=== PATIENT | female | born 1995 | race Two or more races ===

== ENCOUNTER 2024-04-21 18:38 | Emergency (ER) | payer MEDICAID, SELFPAY ==
[2024-04-21 18:40] VITALS: BMI 25.4
[2024-04-21 18:57] VITALS: BP 112/61; PULSE 107; RESP 16; TEMP 36.9; O2SAT 99
--- NOTE | 2024-04-21 19:04 | EDNOTE_ITS ---
ED OB Contraction Preg RMI/HPI General Chief complaint: Vaginal Bleeding Stated complaint: VAG BLEEDING AND IS 5WK PREG Time Seen by Provider: 04/21/24 19:02 Source: patient and family Arrival date/time: 04/21/24 18:38 28-year-old female with no past medical history presents emergency department complaining of vaginal bleeding that started today. Patient reports bleeding is very minimal but does not have abdominal cramping. Patient reports is approximately 5 weeks and is 1. Patient denies any fever, chills, flank pain, gross hematuria, diarrhea, or any other associated symptom. Mode of arrival: ambulatory Limitations: no limitations Related Data Allergies Allergy/AdvReac Type Severity Reaction Status Date / Time No Known Allergies Allergy Verified 04/21/24 18:42 Review of Systems Review of Systems Systems Reviewed: All systems reviewed, normal except as documented Constitutional Constitutional: Reports system reviewed and no additional complaints, except as documented, Denies body ache(s), Denies chills and Denies fever(s) Eyes Eyes: Reports system reviewed and no additional complaints, except as documented and Denies change in vision ENT Ears, Nose, Mouth, and Throat: Reports system reviewed and no additional complaints, except as documented, Denies disequilibrium, Denies dizziness, Denies sore throat and Denies vertigo Cardiovascular Cardiovascular: Reports system reviewed and no additional complaints, except as documented, Denies chest pain and Denies dyspnea Respiratory Respiratory: Reports system reviewed and no additional complaints, except as documented, Denies chest congestion, Denies cough and Denies dyspnea Gastrointestinal Gastrointestinal: Reports system reviewed and no additional complaints, except as documented, Denies abdominal pain, Denies nausea and Denies vomiting Genitourinary Genitourinary: Reports abnormal vaginal bleeding Musculoskeletal Musculoskeletal: Reports system reviewed and no additional complaints, except as documented, Denies abnormal gait and Denies arthralgias Integumentary/Breasts Skin/Breast: Reports system reviewed and no additional complaints, except as documented, Denies erythema, Denies rash and Denies wounds Neurologic Neurologic: Reports system reviewed and no additional complaints, except as documented, Denies abnormal gait, Denies disequilibrium, Denies dizziness and Denies vertigo Past Medical History Social History SMOKING STATUS: Never smoker ED Exam General Limitations: Present no limitations General appearance: Present alert and in no apparent distress Head Head exam: Present atraumatic Eye Eye exam: Present normal appearance, PERRL and EOMI ENT ENT exam: Present normal exam, normal oropharynx and mucous membranes moist Neck Neck exam: Present normal inspection, full ROM and trachea midline Chest Chest inspection: Present normal inspection and symmetric chest wall rise Respiratory Respiratory exam: Present normal lung sounds bilaterally Cardiovascular Cardiovascular exam: Present regular rate, normal rhythm and normal heart sounds Abdominal Exam Abdominal exam: Present soft and normal bowel sounds Extremities Exam Extremities exam: Present normal inspection and full ROM Back Exam Back exam: Present normal inspection and full ROM Neurological Exam Neurological exam: Present alert, oriented X3 and CN II-XII intact Psychiatric Psychiatric exam: Present normal affect and normal mood Skin Skin exam: Present warm, dry, intact and normal color Course Quality Measures none Orders Category Date Time Status US OB <= 14 weeks fetus Stat Exams 04/21/24 20:15 Completed ABO/RH Type Stat Lab 04/21/24 19:29 Completed Beta HCG,Quantitative Stat Lab 04/21/24 19:29 Completed CBC Stat Lab 04/21/24 19:29 Completed CMP [Comprehensive Metabolic Panel] Stat Lab 04/21/24 19:29 Completed Path Review Blood Smear Stat Lab 04/21/24 19:29 Completed Urinalysis, C/S if Indicated Stat Lab 04/21/24 19:57 Completed Vital Signs Vital signs: Vital Signs Temperature 98.4 F 04/21/24 18:57 Pulse Rate 107 H 04/21/24 18:57 Respiratory Rate 16 04/21/24 18:57 Blood Pressure 112/61 04/21/24 18:57 Pulse Oximetry (%) 99 04/21/24 18:57 Oxygen Delivery Method Room Air 04/21/24 18:57 99% on room air within normal limits Vaginal Bleeding MDM Narrative MDM Narrative: 28-year-old female with no past medical history presents emergency department complaining of vaginal bleeding that started today. Patient reports bleeding is very minimal but does not have abdominal cramping. Patient reports is approximately 5 weeks and is 1. Patient denies any fever, chills, flank pain, gross hematuria, diarrhea, or any other associated symptom. CBC was unremarkable for any leukocytosis or critically low anemia. CMP was unremarkable. Urinalysis unremarkable. Beta-hCG 7253. Ultrasound finding: Findings: Uterus 8.3 x 5.6 x 6.1 cm pole 0.3 cm corresponds to 6 weeks 0 days gestational age No cardiac activity Ovaries obscured by bowel gas Impression: Intrauterine gestation with pole corresponding to 6 week 0 day gestational age, no cardiac activity Recommend short-term follow-up transvaginal pelvic sonography to exclude embryonic demise Patient appears nontoxic and hemodynamically stable. Patient instructed to follow-up with [facility] and primary care provider and request repeat ultrasound and beta-hCG trend. Instructed to return immediately to the emergency department if any worsening bleeding or worsening symptoms. Patient data External records reviewed:: None Clinical information provided by:: patient and family Social determinants that could affect healthcare access:: none Patient has the following chronic illnesses:: N/A How is presenting disease/condition affected by chronic disease/condition?: no chronic disease Evaluation data The following diagnostics were reviewed and interpreted by me:: lab results and radiology exam(s) Lab and/or radiology exams considered but not ordered:: Ordered Interpretation Summary: Interpreted by me Medications / Prescriptions Medications or Prescriptions considered but not ordered:: N/A Medication administrations:: N/A Consultations Consultation(s) initiated? (list below): No Diagnosis Vaginal Bleeding Differential Diagnosis: missed , threatened and vaginal bleeding Most likely diagnosis given after review of the tests above:: Vaginal bleeding early Admission Indicated Admission indicated?: not indicated Admission Request Was there a request for admission?: No Disposition Plan Disposition Plan: Discharge Discharge Attestation Discharge Attestation: The patient and all family members were given an opportunity to ask questions and understood the discharge instructions. Discharge instructions specifically effects, indications for sooner follow up or return to the emergency department, and the expected course of current diagnosis. Patient condition: Stable Discharge Plan Plan Patient Disposition: HOME (Self Care) Disposition Comment: Stable Prescriptions/Referrals Referrals: No Primary/Family,Physician [Primary Care Provider] - In 1 week Problem List Clinical Impression: Vaginal bleeding affecting early Patient/Caregiver Discharge Instructions Discharge Activity: activity as tolerated Education Materials: Bleeding During Early Additional Instructions: Pelvic rest. Follow-up with [facility] and request repeat ultrasound and beta-hCG levels. Return to emergency department for any worsening symptoms or as needed. Print Language: Mauritanian Stand Alone Forms: Stephanie Award Info., Patient Portal Info Letter Attestation Attestation The patient was seen by the midlevel practitioner. I, the co-signing physician, was present during the entire ER visit. While I did not physically examine the patient, I was available for consultation as needed.
[2024-04-21 19:57] LABS: Basophils % (Auto) 0 % (0-2.5); Eosinophils # (Auto) 0.1 Thou/mm3 (0.0-0.5); Eosinophils % (Auto) 1 % (0-10); Hematocrit 36.8 % (36.0-46.0); Hemoglobin 11.6 g/dL (12.0-16.0); Immature Granulocytes % (Auto) 1 % (0-0); Immature Granulocytes Auto 0.06 Thou/mm3 (0.00-0.00); Lymphocytes # (Auto) 2.9 Thou/mm3 (1.0-4.8); Lymphocytes % (Auto) 30 % (10-50); Mean Corpuscular HGB Conc 31.5 g/dl (31.0-37.0); Mean Corpuscular Volume 70 fL (80-100); Monocytes # (Auto) 0.7 Thou/mm3 (0.0-0.8); Monocytes % (Auto) 8 % (0-12); Neutrophils # (Auto) 5.7 Thou/mm3 (1.8-7.7); Neutrophils % (Auto) 60 % (37-80); Nucleated Red Blood Cell % 0 /100 WBC (0); Platelet Count 211 Thou/mm3 (140-440); RDW Standard Deviation 35.5 fL (36.4-46.3); Red Blood Count 5.27 Miln/mm3 (4.00-5.20); White Blood Count 9.5 Thou/mm3 (3.6-11.0)
--- NOTE | 2024-04-21 20:15 | XR_ITS ---
Examination: Complete OB ultrasound, less than 14 weeks, transabdominal Date and time of exam: April 21, 20242014 hrs. Indications: Onset vaginal bleeding today Technique: Obstetrical ultrasound images less than 14 weeks performed via transabdominal imaging Findings: Uterus 8.3 x 5.6 x 6.1 cm pole 0.3 cm corresponds to 6 weeks 0 days gestational age No cardiac activity Ovaries obscured by bowel gas Impression: Intrauterine gestation with pole corresponding to 6 week 0 day gestational age, no cardiac activity Recommend short-term follow-up transvaginal pelvic sonography to exclude embryonic demise
[2024-04-21 20:17] LABS: Collection Type, Urine Clean Catch
[2024-04-21 20:18] LABS: Alanine Aminotransferase 18 U/L (10-49); Albumin, Serum 4.8 gm/dL (3.5-5.0); Albumin/Globulin Ratio 1.8 (1.2-2.2); Alkaline Phosphatase 55 U/L (46-116); Anion Gap 5 (7-16); Aspartate Amino Transferase 18 U/L (0-34); BUN/Creatinine Ratio 13 Ratio (12-20); Bilirubin,Total 0.6 mg/dL (0.3-1.2); Blood Urea Nitrogen 9 mg/dL (9-23); Calcium 9.8 mg/dL (8.3-10.6); Calcium (Corrected) 9.8 mg/dL (8.5-10.1); Carbon Dioxide 22.3 mMol/L (20.0-31.0); Chloride 107 mMol/L (98-107); Creatinine (Component) 0.7 mg/dL (0.6-1.3); Estimated Creatinine Clearance 105.3 mL/min (>60); Globulin 2.7 gm/dL (2.3-3.5); Glucose 85 mg/dL (74-106); Osmolality,Calculated 265 (275-295); Potassium 3.6 mMol/L (3.4-5.1); Sodium 134 mMol/L (136-145); Total Protein 7.5 gm/dL (5.7-8.2); eGFR > 60 See Note
[2024-04-21 20:26] LABS: Path Review Blood Smear Sent to Pathologist
[2024-04-21 20:29] LABS: Bacteria,Urine Rare; Bilirubin,Urine Negative (Negative); Blood,Urine Negative (Negative); Clarity,Urine Clear (Clear/Hazy); Color,Urine Lt-Yellow (Lt Yel-Yel); Culture Indicated,Urine Not Indicated; Glucose, Urine Negative (Negative); Ketones,Urine Negative (Negative); Leukocyte Esterase,Urine Negative (Negative); Nitrite,Urine Negative (Negative); PH,Urine 6.5 (5.0-7.0); Protein,Urine Negative (Neg - Trace); RBC,Urine 5 /hpf (0-3); Specific Gravity,Urine 1.027 (1.001-1.035); Squamous Epithelial Cell,Urine 1 /hpf (0-5); Urobilinogen,Urine Negative mg/dL (0.0-1.0); WBC,Urine 1 /hpf (0-5)
[2024-04-21 20:41] LABS: Beta HCG,Quantitative 7253 mIU/mL (<5.0)
== END 2024-04-21 21:57 | disposition home or self-care (01) ==
PROVIDERS: Emergency Provider Emergency Medicine
DX: O20.9 Hemorrhage in early pregnancy, unspecified (principal); Z3A.01 Less than 8 weeks gestation of pregnancy
CPT/HCPCS: 36415; 76801; 80053; 81001; 84702; 85025; 86900; 86901; 99284